=== PATIENT | male | born 1975 | race American Indian/Alaskan Native ===

== ENCOUNTER 2021-06-15 07:37 | Observation (INO) | payer OTHER ==
[2021-06-16 17:30] VITALS: BP 121/81
== END 2021-06-16 17:48 | disposition home or self-care (01) ==
LOC: ED 07:37 → 4A 23:20
PROVIDERS: ADMIT Hospitalist; ATTEND Internal Medicine
DX: I24.9 Acute ischemic heart disease, unspecified (principal); I10 Essential (primary) hypertension; I21.4 Non-ST elevation (NSTEMI) myocardial infarction; E11.9 Type 2 diabetes mellitus without complications; E78.5 Hyperlipidemia, unspecified; R51.9 Headache, unspecified; Z79.4 Long term (current) use of insulin; Z79.82 Long term (current) use of aspirin
CPT/HCPCS: 36415; 71046; 78452; 80048; 80053; 80061; 82962; 83880; 84484; 85025; 93005; 93017; 96372; 96374; 96375; 99291; A9502; G0378; J1644; J2270; J2405; J1815